=== PATIENT | male | born 1980 | race Caucasian/White ===

== ENCOUNTER 2021-08-28 18:46 | Emergency (ER) | payer MEDICAID ==
[~2021-08-28] VITALS: Ht 182.9 cm; Wt 79.0 kg
[2021-08-28] MEDS ORDERED: SODIUM CHLORIDE 0.9% 1,000 ML IV ONE (19:00)
[2021-08-28 19:50] LABS: BASOPHILS % 0.8 % (0.0-2.0); EOSINOPHILS % 0.2 % (0.0-5.0); HEMATOCRIT. 35.3 % (42.0-52.0); HEMOGLOBIN. 12.5 g/dL (14.0-18.0); LYMPHOCYTES % 8.4 % (20.0-50.0); MEAN CORPUSCULAR HEMOGLOBIN 36.9 pg (28.0-32.0); MEAN CORPUSCULAR VOLUME 104.4 fL (80.0-94.0); MEAN PLATELET VOLUME 7.4 fl (7.4-10.4); MONOCYTES % 5.9 % (2.0-8.0); NEUTROPHILS % 84.7 % (40.0-76.0); PLATELET 462 x1000/uL (130-400); RED BLOOD CELL COUNT 3.38 mill/uL (4.7-6.1); RED CELL DISTRIBUTION WIDTH 12.8 % (11.6-14.6)
[2021-08-28 19:57] LABS: CHLORIDE 94 mEq/L (98-107)
[2021-08-28 20:06] LABS: ETHANOL BLOOD < 10 mg/dL
[2021-08-28 20:10] VITALS: BP 178/113
== END 2021-08-28 22:01 | disposition home or self-care (01) ==
LOC: ER 18:46
DX: F12.129 Cannabis abuse with intoxication, unspecified (principal); R42 Dizziness and giddiness
CPT/HCPCS: 36415; 80053; 80307; 80320; 80329; 85025; 96360; 99284; J7030; G0480

== ENCOUNTER 2024-03-25 15:40 | Inpatient (IN) | payer MEDICAID ==
[~2024-03-25] VITALS: Ht 180.3 cm; Wt 75.3 kg
[2024-03-25 15:45] VITALS: O2SAT 100
[2024-03-25] MEDS: LEVETIRACETAM 1000MG PREMIX 100 ML IV ONE (16:40)
[2024-03-25 16:51] LABS: DIFFERENTIAL COMMENT 1; HEMATOCRIT. 38.4 % (42.0-52.0); HEMOGLOBIN. 12.5 g/dL (14.0-18.0); MEAN CORPUSCULAR HEMOGLOBIN 33.8 pg (28.0-32.0); MEAN CORPUSCULAR HGB CONC 32.5 g/dL (31.0-37.0); MEAN CORPUSCULAR VOLUME 103.8 fL (80.0-94.0); PLATELET 219 x1000/uL (130-400); RED BLOOD CELL COUNT 3.69 mill/uL (4.7-6.1); RED CELL DISTRIBUTION WIDTH 13.6 % (11.6-14.6); WHITE BLOOD COUNT 6.1 x1000/uL (4.5-11.0)
[2024-03-25 16:57] LABS: CHLORIDE 103 mEq/L (98-107); POTASSIUM 3.6 mEq/L (3.5-5.1); SODIUM 139 mEq/L (136-145)
[2024-03-25 16:58] LABS: CALCIUM 9.5 mg/dL (8.7-10.4); CARBON DIOXIDE 24 mEq/L (21-32)
[2024-03-25 17:03] LABS: CREATININE 0.9 mg/dL (0.6-1.3); ETHANOL BLOOD < 10 mg/dL (<10); GLUCOSE 93 mg/dL (70-105); UREA NITROGEN BLOOD 5 mg/dL (9-23)
[2024-03-25 17:15] LABS: PLATELET ESTIMATE NORMAL
[2024-03-25] MEDS ORDERED: ACETAMINOPHEN 325MG TABLET PO PRN (18:30)
[2024-03-25] MEDS ORDERED: CLONIDINE 0.1MG TABLET PO PRN (18:30)
[2024-03-25] MEDS ORDERED: IPRATROPIUM/ALBUTEROL 0.5-3(2.5)MG/3ML NEB HHN PRN (18:30)
[2024-03-25] MEDS ORDERED: DOCUSATE SODIUM 100MG CAPSULE PO PRN (18:30)
[2024-03-25] MEDS ORDERED: GUAIFENESIN 200MG/10ML SUGAR FREE UDC PO PRN (18:30)
[2024-03-25 18:40] LABS: CLARITY URINE CLEAR (CLEAR); COLOR URINE YELLOW (YELLOW); GLUCOSE URINE NEGATIVE (NEGATIVE); KETONES URINE 1+ (NEGATIVE); LEUKOCYTE ESTERASE URINE NEGATIVE (NEGATIVE); NITRITE URINE NEGATIVE (NEGATIVE); OCCULT BLOOD URINE NEGATIVE (NEGATIVE); PROTEIN URINE 1+ (NEGATIVE)
[2024-03-25 18:53] LABS: *AMPHETAMINES SCREEN URINE NEGATIVE (NEGATIVE); *BARBITURATES SCREEN URINE NEGATIVE (NEGATIVE); *BENZODIAZEPINES SCREEN URINE NEGATIVE (NEGATIVE); *COCAINE SCREEN URINE NEGATIVE (NEGATIVE); METHADONE URINE SCREEN NEGATIVE (NEGATIVE)
[2024-03-25 18:54] LABS: CANNABINOID URINE SCREEN PRESUMPTIVE POSITIVE (NEGATIVE); ECSTASY MDMA SCREEN URINE NEGATIVE (NEGATIVE); OPIATES URINE SCREEN NEGATIVE (NEGATIVE); PHENCYCLIDINE URINE SCREEN NEGATIVE (NEGATIVE)
[2024-03-25 18:58] LABS: BACTERIA URINE NONE SEEN; RBC URINE 0-2 /hpf (0-2); SQUAMOUS EPITHELIAL CELL URINE 1+ /lpf (RARE/1+); WBC URINE 0-2 /hpf (0-2)
[2024-03-25] MEDS: FOLIC ACID 1 MG, THIAMINE HCL 100 MG, MVI, ADULT NO.1 10 ML in DEXTROSE 5% WATER 1,000 ML IV ONE (19:00)
[2024-03-25 22:00] VITALS: BP 142/98; PULSE 85; RESP 20; TEMP 36.6404
[2024-03-25] MEDS: LORAZEPAM 2MG/ML INJ IV PRN (22:07)
[2024-03-25] MEDS: FAMOTIDINE 20MG TABLET PO SCH (22:08)
[2024-03-25] MEDS: ACETAMINOPHEN 325MG TABLET PO PRN (22:08)
[2024-03-25] MEDS: CHLORDIAZEPOXIDE 25MG CAPSULE PO SCH (22:08)
[2024-03-25] MEDS: ONDANSETRON HCL 4MG/2ML INJ IV PRN (22:22)
[2024-03-26] VITALS: BP 148/108; PULSE 79; RESP 20; TEMP 36.6696
[2024-03-26 06:58] LABS: CHLORIDE 100 mEq/L (98-107); POTASSIUM 3.1 mEq/L (3.5-5.1)
[2024-03-26 06:59] LABS: SODIUM 136 mEq/L (136-145)
[2024-03-26 07:00] LABS: CARBON DIOXIDE 28 mEq/L (21-32)
[2024-03-26 07:05] LABS: CREATININE 0.6 mg/dL (0.6-1.3); GLUCOSE 73 mg/dL (70-105); UREA NITROGEN BLOOD 6 mg/dL (9-23)
[2024-03-26 07:06] LABS: ALANINE AMINOTRANSFERASE 57 IU/L (10-49)
[2024-03-26 07:07] LABS: ALBUMIN 4.2 g/dL (3.2-4.8); ASPARTATE AMINOTRANSFERASE 89 IU/L (<34); BILIRUBIN DIRECT 0.3 mg/dL (<=3.0); BILIRUBIN TOTAL 0.9 mg/dL (0.1-1.0); CREATINE KINASE 358 IU/L (46-171); PROTEIN TOTAL 7.1 g/dL (6.0-8.3)
[2024-03-26 07:08] LABS: BASOPHILS % 0.8 % (0.0-2.0); DIFFERENTIAL COMMENT 0; EOSINOPHILS % 0.5 % (0.0-5.0); HEMATOCRIT. 36.8 % (42.0-52.0); HEMOGLOBIN. 12.3 g/dL (14.0-18.0); LYMPHOCYTES % 10.4 % (20.0-50.0); MEAN CORPUSCULAR HEMOGLOBIN 34.2 pg (28.0-32.0); MEAN CORPUSCULAR HGB CONC 33.3 g/dL (31.0-37.0); MEAN CORPUSCULAR VOLUME 102.6 fL (80.0-94.0); MEAN PLATELET VOLUME 8.8 fl (7.4-10.4); MONOCYTES % 10.1 % (2.0-8.0); NEUTROPHILS % 78.2 % (40.0-76.0); PLATELET 196 x1000/uL (130-400); RED BLOOD CELL COUNT 3.59 mill/uL (4.7-6.1); RED CELL DISTRIBUTION WIDTH 13.7 % (11.6-14.6); WHITE BLOOD COUNT 5.7 x1000/uL (4.5-11.0)
[2024-03-26 07:09] LABS: THYROID STIMULATING HORMONE 0.96 uIU/mL (0.55-4.78)
[2024-03-26 07:17] LABS: VITAMIN B12 SERUM 220 pg/mL (211-911)
[2024-03-26] MEDS: POTASSIUM CHLORIDE 20MEQ TABLET SR PO NR (08:30)
[2024-03-26] MEDS: LEVETIRACETAM 1000MG PREMIX 100 ML IV SCH (09:00)
[2024-03-26] MEDS: MULTIVITAMINS,THER W-MINERALS TABLET PO SCH (09:00)
[2024-03-26 12:00] VITALS: BP 142/90; PULSE 73; RESP 20; TEMP 36.55848; O2SAT 100
[2024-03-26 12:41] LABS: FOLIC ACID (FOLATE) SERUM 10.33 ng/mL (>5.38)
[2024-03-26 12:52] LABS: HEPATITIS B SURFACE ANTIGEN NEGATIVE (Negative)
[2024-03-26 13:12] LABS: HEPATITIS A AB IGM NEGATIVE (Negative)
[2024-03-26 13:13] LABS: HEPATITIS B CORE AB IGM NEGATIVE (Negative); HEPATITIS C AB NON REACTIVE (Neg) (Negative)
[2024-03-26 16:00] VITALS: BP 157/103; PULSE 92; RESP 20; TEMP 36.3918; O2SAT 100
[2024-03-26 20:45] VITALS: BP 145/107; PULSE 107; RESP 19; TEMP 37.33632; O2SAT 99
[2024-03-26 21:03] LABS: POTASSIUM 3.6 mEq/L (3.5-5.1)
[2024-03-27 01:30] VITALS: BP 144/95; PULSE 90; RESP 18; TEMP 36.89184; O2SAT 99
[2024-03-27 04:58] VITALS: BP 124/85; PULSE 94; RESP 16; TEMP 36.9474; O2SAT 100
[2024-03-27 08:00] VITALS: BP 123/88; PULSE 89; RESP 18; TEMP 36.83628; O2SAT 100
[2024-03-27 08:26] LABS: CARBON DIOXIDE 26 mEq/L (21-32); CHLORIDE 101 mEq/L (98-107); POTASSIUM 4.2 mEq/L (3.5-5.1); SODIUM 136 mEq/L (136-145)
[2024-03-27 08:28] LABS: CALCIUM 9.8 mg/dL (8.7-10.4)
[2024-03-27 08:31] LABS: HEMOGLOBIN 13.7 g/dL (14.0-18.0); MEAN CORPUSCULAR HEMOGLOBIN 34.5 pg (28.0-32.0); MEAN CORPUSCULAR HGB CONC 33.4 g/dL (31.0-37.0); MEAN CORPUSCULAR VOLUME 103.6 fL (80.0-94.0); PLATELET 200 x1000/uL (130-400); RED BLOOD CELL COUNT 3.96 mill/uL (4.7-6.1); RED CELL DISTRIBUTION WIDTH 13.6 % (11.6-14.6); WHITE BLOOD COUNT 4.5 x1000/uL (4.5-11.0)
[2024-03-27 08:32] LABS: CREATININE 0.7 mg/dL (0.6-1.3); GLUCOSE 80 mg/dL (70-105)
[2024-03-27 08:33] LABS: UREA NITROGEN BLOOD 6 mg/dL (9-23)
[2024-03-27] MEDS: THIAMINE HCL 100MG TABLET PO SCH (09:00)
[2024-03-27 09:07] LABS: FOLATE HEMATOCRIT 36.4 % (37.5-51.0)
[2024-03-27 13:06] LABS: FOLATE RBC 1154 ng/mL (>498)
== END 2024-03-27 09:35 | disposition left against medical advice (07) | DRG 53 ==
LOC: ER 15:40 → EDBEDREQ 16:04 → 5WST 21:18
PROVIDERS: ADMIT Internal Medicine; ATTEND Internal Medicine
DX: G40.909 Epilepsy, unspecified, not intractable, without status epilepticus (principal); D53.9 Nutritional anemia, unspecified; F10.10 Alcohol abuse, uncomplicated; E87.6 Hypokalemia; I10 Essential (primary) hypertension; F12.90 Cannabis use, unspecified, uncomplicated; Z91.148 Patient's other noncompliance with medication regimen for other reason; Z53.29 Procedure and treatment not carried out because of patient's decision for other reasons
CPT/HCPCS: 36415; 76700; 80048; 80076; 80305; 80320; 81003; 82550; 82607; 82746; 82747; 83735; 84132; 84439; 84443; 85014; 85025; 85027; 86705; 86709; 87340; 99285; J1953; J2060; J2405; J3411; J3490; J7070; G0480